=== PATIENT | male | born 1995 | race Caucasian/White ===

== ENCOUNTER 2016-11-10 00:30 | Emergency (ER) | payer OTHER ==
[2016-11-10 00:36] VITALS: BP 140/76
== END 2016-11-10 00:56 | disposition left against medical advice (07) ==
LOC: ED 00:30
DX: R10.9 Unspecified abdominal pain (principal); Z53.21 Procedure and treatment not carried out due to patient leaving prior to being seen by health care provider

== ENCOUNTER 2017-05-03 19:56 | Emergency (ER) | payer OTHER ==
[2017-05-03 20:18] VITALS: BP 138/76
[2017-05-03] MEDS ORDERED: Lidocaine 2% 10 ML* VIAL INJ ONE (20:43)
[2017-05-03] MEDS ORDERED: Bupivacaine 0.25% SDV* 30 ML INJ ONE (20:47)
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
== END 2017-05-03 21:25 | disposition home or self-care (01) ==
LOC: UCEAST 19:56
DX: S01.511A Laceration without foreign body of lip, initial encounter (principal); W50.0XXA Accidental hit or strike by another person, initial encounter; Y93.9 Activity, unspecified; Y92.9 Unspecified place or not applicable
CPT/HCPCS: 12002; 12013; 99211; G0463